=== PATIENT | female | born 1990 | race Caucasian/White ===

== ENCOUNTER 2016-12-20 00:15 | Emergency (ER) | payer OTHER ==
[2016-12-20 00:26] VITALS: BP 138/81; PULSE 89; RESP 20; TEMP 97.6
--- NOTE | 2016-12-20 00:43 | XR ---
EXAM: XR Left Foot Complete, 3 or More Views. CLINICAL HISTORY: Reason: Pain TECHNIQUE: Frontal, lateral and oblique views of the left foot. COMPARISON: No relevant prior studies available. FINDINGS: Bones: Unremarkable. No acute fracture. Joints: Of incidental note is fusion of the fifth DIP joint, an anatomic variant. No dislocation. Soft tissues: Unremarkable. No radiopaque foreign body. IMPRESSION: 1. No acute fracture or dislocation is seen. 2. Comment: Acute fractures may initially be radiographically occult, and short-term follow-up could be obtained in 5-7 days if concern or symptoms persist.
--- NOTE | 2016-12-20 00:55 | ED ---
Lower Extremity Injury HPI - General Chief Complaint: Extremity Injury, Lower Stated Complaint: Foot Injury Time Seen by Provider: 12/20/16 00:45 Source: patient, RN notes reviewed Mode of arrival: ambulatory Limitations: no limitations - History of Present Illness Initial Comments: 26-year-old female presents to the emergency department with a chief complaint of left fourth toe pain. Patient states she talked her toe earlier today. Patient states now noticed bruising and pain with walking so she was concerned. Patient states there is no other injuries from the incident. Patient states that her radiation is moderate pain worse to touch or movement.Patient denies any recent fever, chills, shortness of breath, chest pain, back pain, abdominal pain, nausea vomiting, numbness or tingling, dysuria or hematuria, constipation or diarrhea, headaches or visual changes, or any other current symptoms. - Related Data Home Medications Medication Instructions Recorded Confirmed No Known Home Medications [No 12/20/16 12/20/16 Known Home Medications] Allergies Allergy/AdvReac Type Severity Reaction Status Date / Time amoxicillin Allergy Nausea & Verified 12/20/16 00:26 Vomiting & Diarrhea Review of Systems ROS Statement: Those systems with pertinent positive or pertinent negative responses have been documented in the HPI. ROS Other: All systems not noted in ROS Statement are negative. Past Medical History Past Medical History: No Reported History History of Any Multi-Drug Resistant Organisms: None Reported Past Surgical History: No Surgical Hx Reported Past Psychological History: No Psychological Hx Reported Smoking Status: Never smoker Past Alcohol Use History: None Reported Past Drug Use History: None Reported General Exam - General Exam Comments Initial Comments: General: The patient is awake and alert, in no distress, and does not appear acutely ill. Neck: The neck is supple, there is no tenderness. Cardiovascular: There is a regular rate and rhythm. No murmur, rub or gallop is appreciated. Respiratory: Lungs are clear to auscultation, respirations are non-labored, breath sounds are equal. No wheezes, stridor, rales, or rhonchi. Musculoskeletal: Sensation to have a 2+ pulses at the infection. Full range motion of the left ankle and left foot. Patient does appear to have ecchymosis to the left fourth toe and pain with movement or touch. Less than 2 capillary refill. Neurological: CN II-XII intact, There are no obvious motor or sensory deficits. Coordination appears grossly intact. Speech is normal. Skin: Skin is warm and dry and no rashes or lesions are noted. Psychiatric: Normal mood and affect. Limitations: no limitations Course Vital Signs 12/20/16 00:23 Temperature 97.6 F Pulse Rate 89 Respiratory 20 Rate Blood Pressure 138/81 O2 Sat by Pulse 99 Oximetry Procedures - Orthopedic Splinting/Casting Injury #1 Side: left Lower Extremity Injury Location: toe Lower Extremity Immobilizer: doris tape Medical Decision Making - Medical Decision Making 26-year-old female presents for what appears to be a left toe fracture. At this time we did review the x-ray and there appears to be possible fracture which was not noticed by The radiologist. He Does Appear to Be a Possible Subtle Fracture to the Left Fourth Toe. This Time She Was Taped and a Walking Shoe Was Placed. This Time We Discussed Follow-Up and Return Parameters and Care. Patient Stated That She Understood and She Is in Agreement with the Plan. All Questions Have Been Answered. She'll Be Discharged Home. - Radiology Data Radiology results: report reviewed, image reviewed Interpreted by me: Concern for fracture to the fourth digit Disposition Clinical Impression: Toe fracture, left Disposition: HOME SELF-CARE Condition: Stable Instructions: Toe Fracture (ED) Additional Instructions: Please use medication as discussed. Please follow up with family doctor if symptoms have not improved over the next two days. Please return to the emergency room if your symptoms increase or worsen or for any other concerns. Referrals: Demarcus Durbin MD [Primary Care Provider] - 1-2 days Time of Disposition: 00:55
== END 2016-12-20 01:07 | disposition home or self-care (01) ==
LOC: EC 00:15
DX: S92.912A Unspecified fracture of left toe(s), initial encounter for closed fracture (principal); X58.XXXA Exposure to other specified factors, initial encounter
CPT/HCPCS: 99283

== ENCOUNTER 2017-03-06 20:24 | Emergency (ER) | payer OTHER ==
[2017-03-06 20:39] VITALS: TEMP 101.1
[2017-03-06] MEDS ORDERED: SODIUM CHLORIDE 0.9% 1,000 ML IV ONE (22:46)
[2017-03-06] MEDS ORDERED: KETOROLAC 30 MG/ML 1 ML VIAL IVP STA (22:48)
[2017-03-06] MEDS ORDERED: ACETAMINOPHEN TAB 500 MG TAB PO STA (22:48)
[2017-03-06] MEDS ORDERED: SODIUM CHLORIDE 0.9% 1,000 ML IV SCH (23:00)
[2017-03-06 23:02] LABS: Appearance,Urine Turbid (Clear); Bacteria,Urine Occasional /hpf; Bilirubin,Urine Negative (Negative); Glucose,Urine (UA) Negative (Negative); Ketones,Urine Negative (Negative); Leukocyte Esterase,Urine Large (Negative); Mucus,Urine Rare /hpf; Nitrite,Urine Negative (Negative); Particle Count 58660; Protein,Urine Trace (Negative); RBC,Urine >182 /hpf (0-5); Specific Gravity,Urine 1.018 (1.001-1.035); Squamous Epithelial Cell,Urine 34 /hpf (0-4); UA Billing (MACRO vs. MICRO) MICRO; Urobilinogen,Urine <2.0 mg/dL (<2.0); WBC,Urine 39 /hpf (0-5)
[2017-03-06 23:28] LABS: Basophils # (A) 0.1 k/uL (0-0.2); Basophils % (A) 1 %; CHCM 33.7; Eosinophils # (A) 0.2 k/uL (0-0.7); Eosinophils % (A) 2 %; HCT 45.9 % (34.0-46.0); HDW 2.18; HGB 15.1 gm/dL (11.4-16.0); Luc # (Auto) 0.29; Luc % (Auto) 3; Lymphocytes % (A) 11 %; MCH 30.5 pg (25.0-35.0); MCV 92.5 fL (80.0-100.0); Mean Platelet Volume 8.2; Monocytes # (A) 0.8 k/uL (0-1.0); Monocytes % (A) 8 %; Neutrophils # (A) 6.9 k/uL (1.3-7.7); Neutrophils % (A) 75 %; RBC 4.96 m/uL (3.80-5.40); RDW 12.4 % (11.5-15.5); WBC 9.2 k/uL (3.8-10.6); WBC (Perox) 8.95
--- NOTE | 2017-03-06 23:42 | ED ---
Female Urogenital HPI - General Chief complaint: Urogenital Stated complaint: Vaginal Burning Time Seen by Provider: 03/06/17 22:34 Source: patient, RN notes reviewed, old records reviewed Mode of arrival: ambulatory Limitations: no limitations - History of Present Illness Initial comments: Is a 26-year-old female complaining of vaginal burning and discharge. She also has kidney pain. Patient denies any nausea or vomiting. She does have some left-sided back pain. has a fever. Patient denies any abdominal pain. She states that it feels like burning with urination and afterward at all times. She is concerned of STD from a previous boyfriend. - Related Data Home Medications Medication Instructions Recorded Confirmed Phenazopyridine [Pyridium] 100 mg PO TID 03/11/17 03/11/17 Previous Rx's Medication Instructions Recorded Fluconazole [Diflucan] 150 mg PO ONCE #3 tab 03/07/17 Nystatin 100,000Unit/gm Cream 1 applic TOPICAL TID 5 Days 03/11/17 [Mycostatin Cream] Allergies Allergy/AdvReac Type Severity Reaction Status Date / Time amoxicillin Allergy Nausea & Verified 03/11/17 14:38 Vomiting & Diarrhea Review of Systems ROS Statement: Those systems with pertinent positive or pertinent negative responses have been documented in the HPI. ROS Other: All systems not noted in ROS Statement are negative. Past Medical History Past Medical History: No Reported History Additional Past Medical History / Comment(s): Kidney Stones History of Any Multi-Drug Resistant Organisms: None Reported Past Surgical History: No Surgical Hx Reported Additional Past Surgical History / Comment(s): LEEP procedure x2 Past Psychological History: No Psychological Hx Reported Smoking Status: Never smoker Past Alcohol Use History: None Reported Past Drug Use History: None Reported General Exam - General Exam Comments Initial Comments: Pleasant 26-year-old female. No distress. Limitations: no limitations General appearance: alert, in no apparent distress Head exam: Present: atraumatic, normocephalic, normal inspection Eye exam: Present: normal appearance, PERRL, EOMI. Absent: scleral icterus, conjunctival injection, periorbital swelling ENT exam: Present: normal exam, mucous membranes moist Neck exam: Present: normal inspection. Absent: tenderness, meningismus, lymphadenopathy Respiratory exam: Present: normal lung sounds bilaterally. Absent: respiratory distress, wheezes, rales, rhonchi, stridor Cardiovascular Exam: Present: regular rate, normal rhythm, normal heart sounds. Absent: systolic murmur, diastolic murmur, rubs, gallop, clicks GI/Abdominal exam: Present: soft, normal bowel sounds. Absent: distended, tenderness, guarding, rebound, rigid External exam: Present: other (unable to preform vaginal exam, patient is in hallway, all roooms are full. ) Extremities exam: Present: normal inspection, full ROM, normal capillary refill. Absent: tenderness, pedal edema, joint swelling, calf tenderness Back exam: Present: normal inspection Neurological exam: Present: alert, oriented X3, CN II-XII intact Psychiatric exam: Present: normal affect, normal mood Skin exam: Present: warm, dry, intact, normal color. Absent: rash Course Vital Signs 03/06/17 03/07/17 20:35 00:39 Temperature 101.1 F H Pulse Rate 128 H 74 Respiratory 20 24 Rate Blood Pressure 169/101 122/76 O2 Sat by Pulse 98 99 Oximetry Medical Decision Making - Medical Decision Making Is a 26-year-old female complaining of vaginal burning and discharge. She also has kidney pain. Patient denies any nausea or vomiting. She does have some left-sided back pain. has a fever. Patient denies any abdominal pain. She states that it feels like burning with urination and afterward at all times. She is concerned of STD from a previous boyfriend. Patient is in the hallway due to no rooms available and being busy, unable to preform vaginal exam. Patient urinalysis shows significant infection, no leukocytosis. Patient is concerned for STD, given Azithromycin and rocephin as precaution. Will discharge on ciprofloxacin and Fluconazole. Patient agrees to follow up with PCP or return to this facility if symptoms persist. Understands treatment plan and will comply. - Lab Data Result diagrams: 03/06/17 23:02 03/06/17 23:02 Lab Results 03/06/17 03/06/17 03/06/17 Range/Units 22:00 23:02 23:02 WBC 9.2 (3.8-10.6) k/uL RBC 4.96 (3.80-5.40) m/uL Hgb 15.1 (11.4-16.0) gm/dL Hct 45.9 (34.0-46.0) % MCV 92.5 (80.0-100.0) fL MCH 30.5 (25.0-35.0) pg MCHC 33.0 (31.0-37.0) g/dL RDW 12.4 (11.5-15.5) % Plt Count 243 (150-450) k/uL Neutrophils % 75 % Lymphocytes % 11 % Monocytes % 8 % Eosinophils % 2 % Basophils % 1 % Neutrophils # 6.9 (1.3-7.7) k/uL Lymphocytes # 1.0 (1.0-4.8) k/uL Monocytes # 0.8 (0-1.0) k/uL Eosinophils # 0.2 (0-0.7) k/uL Basophils # 0.1 (0-0.2) k/uL Sodium 136 L (137-145) mmol/L Potassium 4.2 (3.5-5.1) mmol/L Chloride 101 (98-107) mmol/L Carbon Dioxide 23 (22-30) mmol/L Anion Gap 12 mmol/L BUN 14 (7-17) mg/dL Creatinine 0.75 (0.52-1.04) mg/dL Est GFR (MDRD) Af Amer >60 (>60 ml/min/1.73 sqM) Est GFR (MDRD) Non-Af >60 (>60 ml/min/1.73 sqM) Glucose 98 (74-99) mg/dL Calcium 9.6 (8.4-10.2) mg/dL Total Bilirubin 0.4 (0.2-1.3) mg/dL AST 20 (14-36) U/L ALT 31 (9-52) U/L Alkaline Phosphatase 82 (38-126) U/L Total Protein 7.6 (6.3-8.2) g/dL Albumin 4.5 (3.5-5.0) g/dL Urine Color Yellow Urine Appearance Turbid H (Clear) Urine pH 6.0 (5.0-8.0) Ur Specific [place] 1.018 (1.001-1.035) Urine Protein Trace H (Negative) Urine Glucose (UA) Negative (Negative) Urine Ketones Negative (Negative) Urine Blood Moderate H (Negative) Urine Nitrite Negative (Negative) Urine Bilirubin Negative (Negative) Urine Urobilinogen <2.0 (<2.0) mg/dL Ur Leukocyte Esterase Large H (Negative) Urine RBC >182 H (0-5) /hpf Urine WBC 39 H (0-5) /hpf Ur Squamous Epith Cells 34 H (0-4) /hpf Urine Bacteria Occasional H (None) /hpf Urine Mucus Rare H (None) /hpf Disposition Clinical Impression: UTI (urinary tract infection), STD exposure Disposition: HOME SELF-CARE Condition: Good Instructions: Urinary Tract Infection in Women (ED) Additional Instructions: Patient is to rest, increase fluids. Follow-up with primary care provider. Take Motrin and tylenol for pain and fever Prescriptions: Fluconazole [Diflucan] 150 mg PO ONCE #3 tab Referrals: Demarcus Durbin MD [Primary Care Provider] - 1-2 days Time of Disposition: 00:19
[2017-03-06 23:43] LABS: ALT 31 U/L (9-52); AST 20 U/L (14-36); Alkaline Phosphatase 82 U/L (38-126); Anion Gap 12 mmol/L; Blood Urea Nitrogen 14 mg/dL (7-17); Calcium 9.6 mg/dL (8.4-10.2); Carbon Dioxide 23 mmol/L (22-30); Chloride 101 mmol/L (98-107); Glucose 98 mg/dL (74-99); Non-African American GFR(MDRD) >60 (>60 ml/min/1.73 sqM); Potassium 4.2 mmol/L (3.5-5.1); Sodium 136 mmol/L (137-145); Total Bilirubin 0.4 mg/dL (0.2-1.3); Total Protein 7.6 g/dL (6.3-8.2)
[2017-03-06] MEDS ORDERED: cefTRIAXone 250 MG VIAL IV STA (23:47)
[2017-03-06] MEDS ORDERED: AZITHROMYCIN 500 MG TAB PO STA (23:47)
[2017-03-07 00:41] VITALS: BP 122/76; PULSE 74; RESP 24
== END 2017-03-07 00:42 | disposition home or self-care (01) ==
LOC: EC 20:24
DX: N39.0 Urinary tract infection, site not specified (principal); Z20.2 Contact with and (suspected) exposure to infections with a predominantly sexual mode of transmission; Z87.442 Personal history of urinary calculi; Z88.0 Allergy status to penicillin
CPT/HCPCS: 99284; 96374; 96375; 96361 ×2; 36415; 80053; 85025; 81001; 87086; J0696; J1885

== ENCOUNTER 2017-03-11 12:42 | Emergency (ER) | payer OTHER ==
[2017-03-11 13:05] VITALS: BP 143/89; PULSE 102; RESP 16; TEMP 98.1
--- NOTE | 2017-03-11 15:15 | ED ---
Female Urogenital HPI - General Chief complaint: Urogenital Stated complaint: UTI Time Seen by Provider: 03/11/17 14:23 Source: patient, RN notes reviewed Mode of arrival: ambulatory Limitations: no limitations - History of Present Illness Initial comments: 26-year-old female presents emergency Department chief complaint of vaginal pain. Patient states that she's been having this pain for the last week or so. She states she for urinary tract infection however did not help. Patient states it hurts to PF hurts to sit. Patient states she's speaking but a little bit every time. Patient states she was concerned due to her symptoms. She should be evaluated.Patient denies any recent fever, chills, shortness of breath , chest pain, back pain, abdominal pain, nausea vomiting, numbness or tingling, hematuria, constipation or diarrhea, headaches or visual changes, or any other current symptoms. Last Menstrual Period: 01/23/17 - Related Data Home Medications Medication Instructions Recorded Confirmed Phenazopyridine [Pyridium] 100 mg PO TID 03/11/17 03/11/17 Previous Rx's Medication Instructions Recorded Fluconazole [Diflucan] 150 mg PO ONCE #3 tab 03/07/17 Nystatin 100,000Unit/gm Cream 1 applic TOPICAL TID 5 Days 03/11/17 [Mycostatin Cream] Allergies Allergy/AdvReac Type Severity Reaction Status Date / Time amoxicillin Allergy Nausea & Verified 03/11/17 14:38 Vomiting & Diarrhea Review of Systems ROS Statement: Those systems with pertinent positive or pertinent negative responses have been documented in the HPI. ROS Other: All systems not noted in ROS Statement are negative. Past Medical History Past Medical History: No Reported History Additional Past Medical History / Comment(s): Kidney Stones History of Any Multi-Drug Resistant Organisms: None Reported Past Surgical History: No Surgical Hx Reported Additional Past Surgical History / Comment(s): LEEP procedure x2 Past Psychological History: No Psychological Hx Reported Smoking Status: Never smoker Past Alcohol Use History: None Reported Past Drug Use History: None Reported General Exam Limitations: no limitations General appearance: alert, in no apparent distress Respiratory exam: Present: normal lung sounds bilaterally. Absent: respiratory distress, wheezes, rales, rhonchi, stridor Cardiovascular Exam: Present: regular rate, normal rhythm, normal heart sounds. Absent: systolic murmur, diastolic murmur, rubs, gallop, clicks External exam: Present: erythema, lesions, lacerations, other (She appears to have thick white discharge with excoriations to the vaginal external canal.) Speculum exam: Absent: normal speculum exam (Unable to tolerate due to pain) By manual exam: Absent: normal by manual exam (Unable to tolerate due to pain) Neurological exam: Present: alert, oriented X3 Psychiatric exam: Present: normal affect, normal mood Skin exam: Present: warm, dry, intact, normal color. Absent: rash Course Vital Signs 03/11/17 13:01 Temperature 98.1 F Pulse Rate 102 H Respiratory 16 Rate Blood Pressure 143/89 O2 Sat by Pulse 96 Oximetry Medical Decision Making - Medical Decision Making 26-year-old female presents with what appears to be candidal type infection along with skin excoriation most likely due to this. We will have the patient take fluconazole which she was prescribed that she never took as well as put her on nystatin cream as well as discuss other care. We did discuss return for hours and follow-up and all patient's questions. He stated that she understood and is in agreement with the plan. She will be discharged Disposition Clinical Impression: Vulvovaginal candidiasis, Vaginal discomfort Disposition: HOME SELF-CARE Condition: Stable Instructions: Vulvovaginal Candidiasis (ED) Additional Instructions: Please use medication as discussed. Please follow up with family doctor if symptoms have not improved over the next two days. Please return to the emergency room if your symptoms increase or worsen or for any other concerns. Prescriptions: Nystatin 100,000Unit/gm Cream [Mycostatin Cream] 1 applic TOPICAL TID 5 Days Referrals: Demarcus Durbin MD [Primary Care Provider] - 1-2 days Time of Disposition: 15:15
== END 2017-03-11 15:24 | disposition home or self-care (01) ==
LOC: EC 12:42
DX: B37.3 Candidiasis of vulva and vagina (principal); R10.2 Pelvic and perineal pain; Z79.899 Other long term (current) drug therapy; Z88.0 Allergy status to penicillin
CPT/HCPCS: 99283

== ENCOUNTER 2018-03-21 21:09 | Emergency (ER) | payer OTHER ==
[2018-03-21 21:50] VITALS: RESP 18; TEMP 97.8
[2018-03-21 22:48] LABS: Basophils # (A) 0.1 k/uL (0-0.2); Basophils % (A) 1 %; Eosinophils # (A) 0.2 k/uL (0-0.7); Eosinophils % (A) 2 %; HCT 44.1 % (34.0-46.0); Lymphocytes % (A) 23 %; MCH 30.5 pg (25.0-35.0); MCV 89.8 fL (80.0-100.0); Mean Platelet Volume 8.6; Monocytes # (A) 0.4 k/uL (0-1.0); Monocytes % (A) 5 %; Neutrophils % (A) 68 %; Platelet Count 300 k/uL (150-450); RBC 4.91 m/uL (3.80-5.40); RDW 12.7 % (11.5-15.5); WBC 8.9 k/uL (3.8-10.6)
[2018-03-21 22:54] LABS: Amorphous Sediment,Urine Rare /hpf; Appearance,Urine Cloudy (Clear); Bilirubin,Urine Negative (Negative); Blood,Urine Large (Negative); Color,Urine Light Yellow; Glucose,Urine (UA) Negative (Negative); Ketones,Urine Negative (Negative); Leukocyte Esterase,Urine Negative (Negative); Nitrite,Urine Negative (Negative); Protein,Urine Negative (Negative); RBC,Urine >182 /hpf (0-5); Specific Gravity,Urine 1.015 (1.001-1.035); Squamous Epithelial Cell,Urine <1 /hpf (0-4); Urobilinogen,Urine <2.0 mg/dL (<2.0); WBC,Urine 4 /hpf (0-5)
[2018-03-21 23:01] LABS: ALT 39 U/L (9-52); AST 23 U/L (14-36); Albumin 4.5 g/dL (3.5-5.0); Alkaline Phosphatase 71 U/L (38-126); Anion Gap 13 mmol/L; Blood Urea Nitrogen 17 mg/dL (7-17); Calcium 10.1 mg/dL (8.4-10.2); Carbon Dioxide 26 mmol/L (22-30); Chloride 104 mmol/L (98-107); Glucose 93 mg/dL (74-99); Potassium 4.2 mmol/L (3.5-5.1); Sodium 143 mmol/L (137-145); Total Bilirubin 0.3 mg/dL (0.2-1.3); Total Protein 7.2 g/dL (6.3-8.2)
--- NOTE | 2018-03-21 23:43 | XR ---
EXAMINATION TYPE: XR KUB DATE OF EXAM: 03/21/2018 COMPARISON: NONE HISTORY: Left side pain TECHNIQUE: 2 views FINDINGS: Bowel gas pattern is normal. There is no sign of intestinal obstruction or pneumoperitoneum . Fecal pattern is normal. There are no pathologic calcifications over the kidneys. Lung bases are cl ear. There is no evidence of a mass. IMPRESSION: Nonacute abdomen.
[2018-03-22] MEDS ORDERED: KETOROLAC 30 MG/ML 1 ML VIAL IVP STA (00:48)
[2018-03-22] MEDS ORDERED: SODIUM CHLORIDE 0.9% 1,000 ML IV ONE (00:48)
[2018-03-22] MEDS ORDERED: ONDANSETRON 4 MG/2 ML VIAL IVP STA (00:48)
[2018-03-22] MEDS ORDERED: TAMSULOSIN 0.4 MG CAP.ER.24H PO STA (01:03)
[2018-03-22] MEDS ORDERED: ACET/COD 300 MG/30 MG STARTER PACK 6 TAB BTL PO STA (01:03)
[2018-03-22] MEDS ORDERED: PHENAZOPYRIDINE 100 MG TAB PO STA (01:03)
--- NOTE | 2018-03-22 01:06 | ED ---
Female Urogenital HPI - General Chief complaint: Urogenital Stated complaint: kidney pain/trouble urinating Time Seen by Provider: 03/22/18 00:38 Source: patient, RN notes reviewed, old records reviewed Mode of arrival: ambulatory Limitations: no limitations - History of Present Illness Initial comments: Patient is a 27-year-old female chief complaint of left sided flank pain for the past day. History of kidney stones and chances feel similar to our previous episodes. Patient relates that she is had no fever or chills. She stated it seems like it's difficult for her to urinate. - Related Data Home Medications Medication Instructions Recorded Confirmed Phenazopyridine [Pyridium] 100 mg PO TID 03/11/17 03/11/17 Previous Rx's Medication Instructions Recorded Fluconazole [Diflucan] 150 mg PO ONCE #3 tab 03/07/17 Nystatin 100,000Unit/gm Cream 1 applic TOPICAL TID 5 Days gm 03/11/17 [Mycostatin Cream] HYDROcodone/APAP 5-325MG [[place] 1 tab PO Q6HR PRN 3 Days #12 tab 03/22/18 5-325] Ibuprofen [Motrin] 600 mg PO Q8HR PRN #20 tab 03/22/18 Phenazopyridine [Pyridium] 100 mg PO TID #9 tablet 03/22/18 Tamsulosin [Flomax] 0.4 mg PO DAILY #10 cap 03/22/18 Allergies Allergy/AdvReac Type Severity Reaction Status Date / Time amoxicillin Allergy Nausea & Verified 03/11/17 14:38 Vomiting & Diarrhea Review of Systems ROS Statement: Those systems with pertinent positive or pertinent negative responses have been documented in the HPI. ROS Other: All systems not noted in ROS Statement are negative. Past Medical History Past Medical History: No Reported History Additional Past Medical History / Comment(s): Kidney Stones History of Any Multi-Drug Resistant Organisms: None Reported Past Surgical History: No Surgical Hx Reported Additional Past Surgical History / Comment(s): LEEP procedure x2 Past Psychological History: No Psychological Hx Reported Smoking Status: Never smoker Past Alcohol Use History: None Reported Past Drug Use History: None Reported General Exam - General Exam Comments Initial Comments: 27-year-old female. Alert. No significant distress. Limitations: no limitations General appearance: alert, in no apparent distress Head exam: Present: atraumatic, normocephalic, normal inspection Eye exam: Present: normal appearance, PERRL, EOMI. Absent: scleral icterus, conjunctival injection, periorbital swelling ENT exam: Present: normal exam, mucous membranes moist Neck exam: Present: normal inspection. Absent: tenderness, meningismus, lymphadenopathy Respiratory exam: Present: normal lung sounds bilaterally. Absent: respiratory distress, wheezes, rales, rhonchi, stridor Cardiovascular Exam: Present: regular rate, normal rhythm, normal heart sounds. Absent: systolic murmur, diastolic murmur, rubs, gallop, clicks GI/Abdominal exam: Present: soft, normal bowel sounds, other (left CVA tenderensss). Absent: distended, tenderness, guarding, rebound, rigid Extremities exam: Present: normal inspection, full ROM, normal capillary refill. Absent: tenderness, pedal edema, joint swelling, calf tenderness Back exam: Present: normal inspection Neurological exam: Present: alert, oriented X3, CN II-XII intact Psychiatric exam: Present: normal affect, normal mood Skin exam: Present: warm, dry, intact, normal color. Absent: rash Course Vital Signs 03/21/18 03/22/18 21:47 01:48 Temperature 97.8 F 97.8 F Pulse Rate 79 72 Respiratory 18 18 Rate Blood Pressure 157/92 146/90 O2 Sat by Pulse 100 99 Oximetry Medical Decision Making - Medical Decision Making Female presented to that you complain of left leg pain. Has history of kidney stones. Your analysis is positive for red blood cells. No white blood cells were noted. Will do a culture of the urine. Patient did have a very long wait in the waiting room. That means triage protocol was obtained. Her lab work was reviewed and normal. I did offer the patient IV fluids and pain medicine. She said she would like to go home at this time. Her TV shows no sign of a stone. I offered to CT scan to determine size and patient refused. At this tiem will treat with flomax, pain medication and nausea medicine. Requests pyridium as well. Return parameters discussed. - Lab Data Result diagrams: 03/21/18 22:39 03/21/18 22:39 Lab Results 03/21/18 03/21/18 03/21/18 Range/Units 21:43 22:39 22:39 WBC 8.9 (3.8-10.6) k/uL RBC 4.91 (3.80-5.40) m/uL Hgb 15.0 (11.4-16.0) gm/dL Hct 44.1 (34.0-46.0) % MCV 89.8 (80.0-100.0) fL MCH 30.5 (25.0-35.0) pg MCHC 34.0 (31.0-37.0) g/dL RDW 12.7 (11.5-15.5) % Plt Count 300 (150-450) k/uL Neutrophils % 68 % Lymphocytes % 23 % Monocytes % 5 % Eosinophils % 2 % Basophils % 1 % Neutrophils # 6.0 (1.3-7.7) k/uL Lymphocytes # 2.0 (1.0-4.8) k/uL Monocytes # 0.4 (0-1.0) k/uL Eosinophils # 0.2 (0-0.7) k/uL Basophils # 0.1 (0-0.2) k/uL Sodium 143 (137-145) mmol/L Potassium 4.2 (3.5-5.1) mmol/L Chloride 104 (98-107) mmol/L Carbon Dioxide 26 (22-30) mmol/L Anion Gap 13 mmol/L BUN 17 (7-17) mg/dL Creatinine 0.70 (0.52-1.04) mg/dL Est GFR (CKD-EPI)AfAm >90 (>60 ml/min/1.73 sqM) Est GFR (CKD-EPI)NonAf >90 (>60 ml/min/1.73 sqM) Glucose 93 (74-99) mg/dL Calcium 10.1 (8.4-10.2) mg/dL Total Bilirubin 0.3 (0.2-1.3) mg/dL AST 23 (14-36) U/L ALT 39 (9-52) U/L Alkaline Phosphatase 71 (38-126) U/L Total Protein 7.2 (6.3-8.2) g/dL Albumin 4.5 (3.5-5.0) g/dL Urine Color Light Yellow Urine Appearance Cloudy H (Clear) Urine pH 7.0 (5.0-8.0) Ur Specific [place] 1.015 (1.001-1.035) Urine Protein Negative (Negative) Urine Glucose (UA) Negative (Negative) Urine Ketones Negative (Negative) Urine Blood Large H (Negative) Urine Nitrite Negative (Negative) Urine Bilirubin Negative (Negative) Urine Urobilinogen <2.0 (<2.0) mg/dL Ur Leukocyte Esterase Negative (Negative) Urine RBC >182 H (0-5) /hpf Urine WBC 4 (0-5) /hpf Ur Squamous Epith Cells <1 (0-4) /hpf Amorphous Sediment Rare H (None) /hpf - Radiology Data Radiology results: report reviewed KUB shows no acute process. Disposition Clinical Impression: Left flank pain, Hematuria Disposition: HOME SELF-CARE Condition: Good Instructions: Kidney Stones (ED) Additional Instructions: Vision is follow-up with urology. Take medication as prescribed. Follow-up with PCP as well. Return to emergency department if any alarming signs or symptoms occur. Prescriptions: HYDROcodone/APAP 5-325MG [[place] 5-325] 1 tab PO Q6HR PRN 3 Days #12 tab PRN Reason: Pain Ibuprofen [Motrin] 600 mg PO Q8HR PRN #20 tab PRN Reason: Pain Phenazopyridine [Pyridium] 100 mg PO TID #9 tablet Tamsulosin [Flomax] 0.4 mg PO DAILY #10 cap Is patient prescribed a controlled substance at d/c from ED?: No When asked, does pt state using other controlled substances?: No If prescribed controlled substance>3 days was MAPS reviewed?: No If opioid is for acute pain is fill amount 7 days or less?: No If Rx opioid, was Start Talking consent form obtained?: No Referrals: Demarcus Durbin MD [Primary Care Provider] - 1-2 days Emiliano Weston MD [STAFF PHYSICIAN] - 1-2 days Time of Disposition: 01:05
[2018-03-22 01:50] VITALS: BP 146/90; PULSE 72
== END 2018-03-22 01:48 | disposition home or self-care (01) ==
LOC: EC 21:09
DX: R10.9 Unspecified abdominal pain (principal); R31.9 Hematuria, unspecified; Z53.29 Procedure and treatment not carried out because of patient's decision for other reasons; Z87.442 Personal history of urinary calculi; Z79.899 Other long term (current) drug therapy; Z88.0 Allergy status to penicillin
CPT/HCPCS: 36415; 74018; 80053; 81001; 85025; 87086; 99284